=== PATIENT | female | born 1990 | race Caucasian/White ===

== ENCOUNTER 2016-11-23 13:08 | Emergency (ER) | payer SELFPAY ==
[2016-11-23] MEDS ORDERED: IBUPROFEN 800 MG TABLET PO ONE (14:00)
--- NOTE | 2016-11-23 14:57 | ER Document Report ---
HPI - HPI Patient complains to provider of: left great toe pain Onset: This morning Onset/Duration: Persistent Quality of pain: Achy Severity: Severe Pain Level: 5 Context: Patient presents to emergency department with complaints of left great toe pain. Patient reports last night she tripped over her daughter. Patient reports pain with trying to put on her shoes. She reports pain with walking. Denies past medical history of injury to the foot. Associated Symptoms: None Exacerbated by: Walking Relieved by: Denies Similar symptoms previously: No Recently seen / treated by doctor: No - DERM Skin Color: Normal Past Medical History - General Information source: Patient Last Menstrual Period: november 04, 2016 - Social History Smoking Status: Current Every Day Smoker Cigarette use (# per day): Yes Frequency of alcohol use: Occasional Drug Abuse: None Occupation: [employer] Lives with: Family Family History: None Patient has suicidal ideation: No Patient has homicidal ideation: No - Medical History Medical History: Negative Renal/ Medical History: Denies: Hx Peritoneal Dialysis Surgical Hx: Negative Vertical Provider Document - CONSTITUTIONAL Agree With Documented VS: Yes Exam Limitations: No Limitations General Appearance: WD/WN, Mild Distress - winces when toe palpated - INFECTION CONTROL TRAVEL OUTSIDE OF THE [place] IN LAST 30 DAYS: No - HEENT HEENT: Atraumatic, Normocephalic - NECK Neck: Supple - RESPIRATORY Respiratory: No Respiratory Distress O2 Sat by Pulse Oximetry: 99 - CARDIOVASCULAR Cardiovascular: Regular Rate - MUSCULOSKELETAL/EXTREMETIES Musculoskeletal/Extremeties: Tender - left great toe with ecchymosis, No obvious deformity, ttp, brisk cap refill, good pedal pulse - NEURO Level of Consciousness: Awake, Alert, Appropriate Motor/Sensory: No Motor Deficit - DERM Integumentary: Warm, Dry Adult Front & Back Diagram: 1 - ttp, ecchymosis Course - Re-evaluation Re-evalutation: 11/23/16 15:11 Nondisplaced distal phalanx fracture. patient instructed on fractured toe. Patient instructed on treatment care plan. Patient instructed to follow-up with orthopedics. She verbalized understanding to all instructions. - Vital Signs Vital signs: Temp Pulse Resp BP Pulse Ox 97.9 F 78 20 106/79 99 11/23/16 13:12 11/23/16 13:12 11/23/16 13:12 11/23/16 13:12 11/23/16 13:12 - Diagnostic Test Radiology reviewed: Image reviewed, Reports reviewed - RAD/ FOOT LEFT COMPLETE IMPRESSION: Nondisplaced fracture distal 1st phalanx. Procedures - Immobilization Left Foot Immobilizer type: Post-op shoe, Other - cristian tape Performed by: Other Post-Proc Neuro Vasc Exam: Unchanged from pre-exam Alignment checked and good: Yes Discharge - Discharge Clinical Impression: Fractured great toe Qualifiers: Encounter type: initial encounter Fracture type: closed Phalanx: distal Fracture alignment: nondisplaced Laterality: left Qualified Code(s): S92.425A - Nondisplaced fracture of distal phalanx of left great toe, initial encounter for closed fracture Condition: Stable Disposition: HOME, SELF-CARE Instructions: Post-Op Shoe ([facility]), Cristian Taping (toes) ([facility]), Ice & Elevation ( [facility]), Oral Narcotic Medication ([facility]), Fractured Toe ([facility]) Additional Instructions: *You have been evaluated for a fractured toe *Maintain the cristian tape and post op shoe for comfort *Rest/Ice/Elevate your foot *Follow up with orthopedics within one week-call for an appointment *Take medication as prescribed *Return to ED for worsening condition, changes, needs Prescriptions: Oxycodone HCl/Acetaminophen [Percocet 5-325 mg Tablet] 1 - 2 tab PO ASDIR PRN # 15 tablet PRN Reason: Forms: Return to Work
[2016-11-23 15:47] VITALS: BP 102/57
== END 2016-11-23 15:41 | disposition home or self-care (01) ==
LOC: ER 13:08
DX: S92.425A Nondisplaced fracture of distal phalanx of left great toe, initial encounter for closed fracture (principal); M79.675 Pain in left toe(s); X50.0XXA Overexertion from strenuous movement or load, initial encounter; F17.210 Nicotine dependence, cigarettes, uncomplicated
CPT/HCPCS: 99283